=== PATIENT | male | born 1995 | race Hispanic/Latino ===

== ENCOUNTER 2021-01-02 13:21 | Emergency (ER) | payer OTHER ==
[~2021-01-02] VITALS: Ht 167.6 cm; Wt 92.3 kg
[2021-01-02] MEDS ORDERED: PERCOCET 5MG/325MG TAB PO ONE (15:25)
[2021-01-02] MEDS ORDERED: LIDOCAINE 5% (LIDODERM) PATCH TD ONE (15:25)
[2021-01-02] MEDS ORDERED: predniSONE 20 MG TAB PO ONE (15:25)
[2021-01-02] MEDS ORDERED: methocarbamoL 750 MG TAB PO ONE (15:25)
[2021-01-02] MEDS ORDERED: diazePAM 10MG/2ML SYRINGE (J3360 PER 5MG) IV ONE ×2 (16:30→18:15)
--- NOTE | 2021-01-02 17:51 | REPVR ---
PROCEDURE INFORMATION: Exam: MR Lumbar Spine Without Contrast Exam date and time: 01/02/2021 4:26 PM Age: 25 years old Clinical indication: Low back pain; Patient HX: Lifting injury; Additional info: Injured back-weakness bilateral le TECHNIQUE: Imaging protocol: Multiplanar magnetic resonance images of the lumbar spine without intravenous contrast. COMPARISON: No relevant prior studies available. FINDINGS: Vertebrae: The lumbar vertebral bodies are normal in height, without abnormal subluxation. There is diffuse nonspecific T1 isointensity of the bone marrow of the visualized spine. This is likely associated with red marrow reconversion and marrow hyperplasia, although additional infiltrating pathology cannot be excluded. Mild angulation of the lumbar spine. Spinal cord: The distal end of the conus medullaris ends at T12, normal in position. Multilevel findings: Degenerative disc disease is noted from L3-L4 through L5-S1, with a decrease in the T2 signal intensity of the discs as well as disc bulge/osteophyte complexes. L1-L2: Minimal disc bulging, without significant spinal canal stenosis or neural foraminal narrowing. L2-L3: Disc bulging causes minimal spinal canal stenosis. No significant neural foraminal narrowing bilaterally. L3-L4: Mild facet arthropathy and hypertrophy of the ligamentum flavum. Disc bulging visualized, with mild spinal canal stenosis. There is narrowing of both lateral recesses. Mild bilateral neural foraminal narrowing. L4-L5: Mild facet arthropathy and hypertrophy of the ligamentum flavum. A broad-based central and right-sided disc protrusion is visualized, with mild spinal canal stenosis. There is narrowing of both lateral recesses, right side greater than left. Mild bilateral neural foraminal narrowing. An annular tear is visualized of the posterior aspect of the disc. L5-S1: A central protrusion is identified, with minimal to mild spinal canal stenosis. Mild bilateral neural foraminal narrowing. An annular tear is visualized of the posterior aspect of the disc. Soft tissues: No significant paraspinal swelling. IMPRESSION: 1. Degenerative changes visualized at multiple lumbar levels, as described above. 2. A broad-based central and right-sided disc protrusion is visualized at L4-L5, with mild spinal canal stenosis. 3. At L5-S1, a central protrusion is identified, with minimal to mild spinal canal stenosis. 4. Mild spinal canal stenosis at L3-L4, with minimal spinal canal stenosis at L2-L3. 5. Neural foraminal narrowing from L3-L4 through L5-S1. 6. There is diffuse nonspecific T1 isointensity of the bone marrow of the visualized spine. This is likely associated with red marrow reconversion and marrow hyperplasia, although additional infiltrating pathology cannot be excluded. Electronically signed by: Petey Baltazar On 01/02/2021 17:51:19 PM
[2021-01-02] MEDS ORDERED: MORPHINE 4 MG/ML 1ML VIAL/SYRINGE (J2270) IV ONE (18:15)
[2021-01-02] MEDS ORDERED: NS 1,000 ML IV ONE (18:40)
[2021-01-02 19:33] VITALS: BP 137/62
[2021-01-02] MEDS ORDERED: NAPR-837 PO (19:39)
[2021-01-02] MEDS ORDERED: ASPE4PAD TOP (19:39)
[2021-01-02] MEDS ORDERED: METH-1165 PO (19:39)
[2021-01-02] MEDS ORDERED: **NOTE PATIENT COMMENT** MISC XX SCH (21:00)
--- NOTE | 2021-01-03 14:20 | ED PDOC ---
Post-Departure Follow-Up mri ls spine faxed to josefina tejada for fu May Burnett MD January 03, 2021 14:20
== END 2021-01-02 19:54 | disposition home or self-care (01) ==
LOC: M ED 13:21
DX: M51.26 Other intervertebral disc displacement, lumbar region (principal); M51.27 Other intervertebral disc displacement, lumbosacral region; M48.061 Spinal stenosis, lumbar region without neurogenic claudication; X50.0XXA Overexertion from strenuous movement or load, initial encounter; Y92.39 Other specified sports and athletic area as the place of occurrence of the external cause; Y93.B9 Activity, other involving muscle strengthening exercises; Y99.9 Unspecified external cause status; F17.200 Nicotine dependence, unspecified, uncomplicated
CPT/HCPCS: 72148; 96361; 96374; 96375; 96376; 99284; J2270; J3360